=== PATIENT | female | born 1980 | race Caucasian/White ===

== ENCOUNTER 2019-05-16 10:52 | Outpatient (CLI) | payer OTHER ==
[~2019-05-16] VITALS: Ht 165.1 cm; Wt 110.0 kg
[2019-05-16] VITALS (7 sets, daily range): BP systolic 106–127; BP diastolic 60–82; PULSE 72–99; TEMP 97.8–98.6
--- NOTE | 2019-05-16 11:10 | NUR ---
Pt has had iron infusion before.
[2019-05-16] MEDS ORDERED: ADDERALL20 MG PO (11:38)
[2019-05-16] MEDS ORDERED: VITAMIN D31000 I1 PO (11:39)
[2019-05-16] MEDS ORDERED: CYANOCOBAL1000 MCG/1 IM (11:39)
--- NOTE | 2019-05-16 11:47 | NUR ---
IV iron to run over 2 hours. Pt has test at 1300. PIV left in L AC and wrapped with coban. Pt to return after test at 1500.
--- NOTE | 2019-05-16 16:50 | NUR ---
Iron infusion complete. Pt atul well.
--- NOTE | 2019-05-16 17:30 | NUR ---
Pt observed for 30 min after infusion complete. Pt atul well. Pt discharged per ambulation.
== END 2019-05-16 17:31 | disposition home or self-care (01) ==
LOC: EUO 10:52
DX: D50.9 Iron deficiency anemia, unspecified (principal)
CPT/HCPCS: J2916

== ENCOUNTER → 2019-09-04 | Outpatient (CLI) | payer OTHER ==
[~2019-09-04] MED LIST: ADDERALL20 MG PO; CYANOCOBAL1000 MCG/1 IM; VITAMIN D31000 I1 PO
== END ==
LOC: MC.RAD 13:28
DX: D17.39 Benign lipomatous neoplasm of skin and subcutaneous tissue of other sites (principal)
CPT/HCPCS: G0279

== ENCOUNTER → 2020-04-07 | Outpatient (CLI) | payer OTHER ==
[~2020-04-07] MED LIST changes: +FOLIC ACID 11 MG/TA1 PO
== END ==
LOC: COL.RAD 12:41
DX: K80.20 Calculus of gallbladder without cholecystitis without obstruction (principal)

== ENCOUNTER 2020-04-16 14:00 | Outpatient (RCR) | payer OTHER ==
[2020-04-03 15:02] VITALS: BP 122/76; PULSE 69; TEMP 98.6
[2020-04-03 16:51] VITALS: BP 124/73; PULSE 72; TEMP 98.6
[~2020-04-16] VITALS: Ht 165.1 cm; Wt 120.4 kg
[2020-04-16] MEDS ORDERED: PROZAC40 MG PO (14:38)
[2020-04-16] MEDS ORDERED: DESYREL 50MG50 MG PO (14:39)
[2020-04-16] MEDS ORDERED: PRIL40 PO (14:39)
[2020-04-16 14:50] VITALS: BP 130/82; PULSE 93; TEMP 98
--- NOTE | 2020-04-16 16:42 | NUR ---
Pt Mom called this nurse to report pt has some redness on hands and feet at home with swelling of the hands and feet.This nurse requested to speak with patient.per pt report she is in shower and per pt she took po benadryl at home.Requested pt to call Dr Barber offic to report.Instructed pt if she develops progressive swelling,rash,tighting or closing of throat to immediately head to ER.Pt verballizes understanding.This nurse called Dr Barber office and spoke with macarena to report.
[2020-04-16] MEDS ORDERED: PREDNISONE20 MG PO (20:21)
[2020-04-17] MEDS ORDERED: BENADRYL50 MG PO (07:13)
[2020-04-17] MEDS ORDERED: ZOFRAN8 MG PO (07:13)
[2020-04-17] MEDS ORDERED: PHENERGAN 25 TA25 MG PO (07:14)
[2020-04-17] MEDS ORDERED: ULTRAM 50MG TAB50 MG PO (10:11)
[2020-04-17] MEDS ORDERED: NORCO 325 MG-51 TAB PO (15:07)
== END 2020-04-16 15:50 | disposition still patient (30) ==
LOC: EUO 14:00
DX: D50.9 Iron deficiency anemia, unspecified (principal)
CPT/HCPCS: J2916

== ENCOUNTER 2020-04-16 17:18 | Emergency (ER) | payer OTHER ==
[~2020-04-16] VITALS: Ht 165.1 cm; Wt 118.2 kg
[~2020-04-16 17:18] MED LIST changes: +DESYREL 50MG50 MG PO; +PRIL40 PO; +PROZAC40 MG PO
[2020-04-16 17:22] VITALS: TEMP 98.7
[2020-04-16 18:13] LABS: BASO # 0.1 (0.0-0.2); BASO % 0.8 % (0.0-2.0); EOS # 0.1 (0.0-0.7); GRAN # 4.8 (1.4-6.5); GRAN % 52.3 % (42.2-75.2); HEMATOCRIT 40.8 % (37.0-47.0); HEMOGLOBIN 13.1 g/dl (12.5-16.0); LYMPH # 3.7 (1.2-3.4); LYMPH % 40.1 % (20.0-51.0); MEAN CELL VOLUME 85 fl (80.0-100.0); MEAN CORPUSCULAR HEMOGLOBIN 27 pg (27.0-31.0); MEAN CORPUSCULAR HGB CONC 32 g/dl (33.0-37.0); MEAN PLATELET VOLUME 11.8 fl (7.4-10.4); MONO # 0.5 (0.1-0.6); MONO % 5.5 % (1.7-9.3); PLATELET COUNT 271 K/mm3 (130-400); RED BLOOD COUNT 4.81 M/mm3 (4.10-5.30); REDCELL DISTRIBUTION WIDTH-CV 17.2 % (11.5-14.5)
[2020-04-16 18:27] LABS: ALANINE AMINOTRANSFERASE 30 U/L (4-34); ALBUMIN 3.6 gm/dL (3.5-5.0); ALKALINE PHOSPHATASE 92 U/L (50-136); ANION GAP 11 mmol/L (7-16); AST,SGOT 37 U/L (15-37); BILIRUBIN,TOTAL 0.3 mg/dL (0.0-1.0); BLOOD UREA NITROGEN 20 mg/dL (7-17); CALCIUM 8.1 mg/dL (8.4-10.2); CARBON DIOXIDE 20 mmol/L (22-30); CHLORIDE 106 mmol/L (98-107); CREATININE, serum 0.84 (0.52-1.25); GLUCOSE 98 mg/dL (74-106); MAGNESIUM 1.9 mg/dL (1.6-2.3); POTASSIUM 3.9 mmol/L (3.4-5.0); SODIUM 137 mmol/L (137-145); TOTAL PROTEIN 6.5 gm/dL (6.4-8.2)
[2020-04-16 18:37] LABS: ERYTHROCYTE SEDIMENTATION RATE 1 mm/hr (0-20)
[2020-04-16 18:49] LABS: C-REACTIVE PROTEIN < 0.5 mg/dL (0.0-0.9)
[2020-04-16 19:07] LABS: COLLECTION METHOD CLEAN CATCH
[2020-04-16 19:12] LABS: PH 5 (5-8); URINE APPEARANCE Clear; URINE BACTERIA None Seen /hpf; URINE BILIRUBIN Negative (NEGATIVE); URINE BLOOD Negative (NEGATIVE); URINE COLOR Yellow; URINE GLUCOSE Negative (NEGATIVE); URINE KETONE Negative (NEGATIVE); URINE LEUKOCYTE ESTERASE Negative (NEGATIVE); URINE NITRATE Negative (NEGATIVE); URINE PROTEIN(semi-quant) Negative (NEGATIVE); URINE RBC 0-2 /hpf; URINE UROBILINOGEN Negative (NEGATIVE)
[2020-04-16 20:12] VITALS: BP 140/90; PULSE 79
[2020-04-16] MEDS ORDERED: PREDNISONE20 MG PO (20:21)
[2020-04-17] MEDS ORDERED: BENADRYL50 MG PO (07:13)
[2020-04-17] MEDS ORDERED: ZOFRAN8 MG PO (07:13)
[2020-04-17] MEDS ORDERED: PHENERGAN 25 TA25 MG PO (07:14)
[2020-04-17] MEDS ORDERED: ULTRAM 50MG TAB50 MG PO (10:11)
[2020-04-17] MEDS ORDERED: NORCO 325 MG-51 TAB PO (15:07)
== END 2020-04-16 20:21 | disposition home or self-care (01) ==
LOC: COL.ER 17:18
PROVIDERS: Emergency Medicine
DX: T45.4X5A Adverse effect of iron and its compounds, initial encounter (principal); D50.9 Iron deficiency anemia, unspecified
CPT/HCPCS: J2930; J7030

== ENCOUNTER 2020-04-17 06:04 | Day surgery (SDC) | payer OTHER ==
[~2020-04-17] VITALS: Ht 165.1 cm; Wt 121.4 kg
[2020-04-17] VITALS (8 sets, daily range): BP systolic 138–148; BP diastolic 78–93; PULSE 82–98; TEMP 98.7
[~2020-04-17 06:04] MED LIST changes: +PREDNISONE20 MG PO
[2020-04-17] MEDS ORDERED: ZOFRAN8 MG PO (07:13)
[2020-04-17] MEDS ORDERED: BENADRYL50 MG PO (07:13)
[2020-04-17] MEDS ORDERED: PHENERGAN 25 TA25 MG PO (07:14)
[2020-04-17] MEDS ORDERED: ULTRAM 50MG TAB50 MG PO (10:11)
--- NOTE | 2020-04-17 11:23 | NUR ---
Patient returns to room 7 per cart from PACU accompanied by Herlinda JIMENEZ and is awake and alert. IV fluids infusing and site is clear. Siderails up x2 and call light in reach. Bandaids x4 clean and dry. Friend in room. Call light in reach and allowed to sleep.
--- NOTE | 2020-04-17 11:38 | NUR ---
Resting with eyes closed when not disturbed. Siderails up x2 and call light in reach.
--- NOTE | 2020-04-17 11:53 | NUR ---
Resting with eyes closed when not disturbed.
--- NOTE | 2020-04-17 12:08 | NUR ---
Continues to rest without complaints of pain or nausea. IV fluids infusing.
--- NOTE | 2020-04-17 12:23 | NUR ---
Awake and states that she is hungry. Given applesauce and crackers to snack on. Drinking water without nausea.
--- NOTE | 2020-04-17 12:53 | NUR ---
Tolerating applesauce, crackers, and drinking water.
--- NOTE | 2020-04-17 13:09 | NUR ---
Medicated with Ultram 50mg po for abdominal soreness.
--- NOTE | 2020-04-17 13:33 | NUR ---
Assisted up to the bathroom and is able to void. Returns to room. States that she is having right sided abdominal pain. Sitting on the edge of the cart. Sipping on water.
--- NOTE | 2020-04-17 14:03 | NUR ---
States that she continues to have right sided abdominal pain. Ultram 50mg repeated for pain.
--- NOTE | 2020-04-17 14:50 | NUR ---
Patient states that the Ultram is ineffective and is wanting a different pain pill script prior to discharge but is wanting to go home. Dr. Miguel notified and will come and provide new script when available. IV discontinued and site is free of redness.
[2020-04-17] MEDS ORDERED: NORCO 325 MG-51 TAB PO (15:07)
--- NOTE | 2020-04-17 15:15 | NUR ---
Dr. Miguel here and script for [place] 5mg provided. Ultram script shredded. Dismissal instructions given and patient dismissed to home driven by friend. Taken to the front door per Raffi RN with instructions in hand.
== END 2020-04-17 15:15 | disposition home or self-care (01) ==
LOC: SDCO 06:04
DX: K80.10 Calculus of gallbladder with chronic cholecystitis without obstruction (principal); D64.9 Anemia, unspecified; E66.9 Obesity, unspecified; F90.9 Attention-deficit hyperactivity disorder, unspecified type; F32.9 Major depressive disorder, single episode, unspecified; F41.9 Anxiety disorder, unspecified; K21.9 Gastro-esophageal reflux disease without esophagitis; Z87.891 Personal history of nicotine dependence; Z20.828 Contact with and (suspected) exposure to other viral communicable diseases; Z68.41 Body mass index [BMI] 40.0-44.9, adult
CPT/HCPCS: J0330; J1885; J2405; J2550; J2704; J3010; J7120

== ENCOUNTER → 2022-01-04 | Outpatient (CLI) | payer BC ==
[~2022-01-04] MED LIST changes: +BENADRYL50 MG PO; +NORCO 325 MG-51 TAB PO; +PHENERGAN 25 TA25 MG PO; +ULTRAM 50MG TAB50 MG PO; +ZOFRAN8 MG PO
== END ==
LOC: MC.RAD 15:45
DX: Z12.31 Encounter for screening mammogram for malignant neoplasm of breast (principal)